=== PATIENT | male | born 1985 | race Caucasian/White ===

== ENCOUNTER → 2018-06-18 13:34 | Outpatient (CLI) | payer OTHER, SELFPAY ==
--- NOTE | 2018-06-18 | DI.RAD.S_ITS ---
PROCEDURE: FL ARTHROGRAM WRIST LT INDICATIONS: OTHER INSTABILITIES OF LEFT WRIST TECHNIQUE: After informed consent had been obtained, the wrist was examined fluoroscopically, and a site chosen for injection of the radiocarpal compartment from a dorsal approach. Skin was prepped and draped in a sterile fashion and 1% lidocaine infiltrated from the skin down to the articular surface. A hypodermic needle was then introduced into the articular space and a modest amount of contrast medium was instilled confirming intra-articular needle tip placement. This was followed by approximately 4 mL of a dilute gadolinium solution. Needle was removed and dressing was applied. The patient experienced no complications throughout the procedure and left the fluoroscopic suite in no apparent distress. FINDINGS: A single fluoroscopic spot image demonstrates intra-articular location to injected iodinated contrast. IMPRESSION: Successful fluoroscopic-guided administration of dilute Gadolinium solution for wrist MR arthrogram. Dictated by: Lui Luna M.D. on 06/18/2018 at 15:14 Approved by: Lui Luna M.D. on 06/18/2018 at 15:16
--- NOTE | 2018-06-18 | DI.MRI.S_ITS ---
PROCEDURE: MR WRIST LT W CON INDICATIONS: OTHER INSTABILITIES OF LEFT WRIST TECHNIQUE: After the administration of 3-4 mL of dilute intra-articular Gadolinium contrast into the radiocarpal compartment, coronal T1 spin echo with fat saturation and T2 fast spin echo with fat saturation, axial T1 spin echo and T2 fast spin echo with fat saturation, sagittal T1 spin echo with and without fat saturation through the wrist. COMPARISON: None. FINDINGS: Image quality: Excellent. Bones and cartilage: No bone marrow contusions or fractures. There is slight dorsal angulation of the lunate. No evidence for avascular necrosis. Overlying cartilage surfaces appear normal. Carpal ligaments: The scapholunate ligament demonstrates mild partial tearing of the membranous component. The volar and dorsal components appear grossly intact. There is gadolinium extravasation into the mid-carpal compartment. The lunotriquetral ligament appears intact. The radioscaphocapitate and radiolunotriquetral ligaments appear grossly intact. The dorsal intercarpal ligament appears intact. The radiotriquetral ligaments appear attenuated in signal intensity suggestive of a prior sprain. On sagittal images, the pisohamate ligament appears intact. Triangular fibrocartilage complex: The triangular fibrocartilage disc, with its styloid and foveal lamina, appears intact. No gadolinium extravasation into the distal radioulnar joint. The adjacent meniscal homolog appears normal. The ulnar collateral ligament appears intact. The extensor carpi ulnaris tendon is normal in location and morphology. Tendons and soft tissues: The carpal tunnel structures appear normal, including the median nerve. The ulnar nerve appears normal within Guyon's canal. All six extensor tendon compartments demonstrate normal morphology, without pathologic tendon sheath fluid. There is a small lobulated ganglion cyst extending volar to the radiocarpal joint at the level of the proximal scaphoid. This measures up to approximately 0.9 cm. A small amount of indistinct soft tissue is demonstrated IMPRESSION: 1. Partial tearing of the membranous component of scapholunate ligament. 2. Attenuated signal in the dorsal radiotriquetral ligaments dorsally suggestive of a prior sprain. 3. Small volar ganglion cyst along the radiocarpal joint. Dictated by: Herman Kumar M.D. on 06/18/2018 at 14:56 Approved by: Herman Kumar M.D. on 06/18/2018 at 15:17
== END ==
PROVIDERS: Visit Provider Orthopaedic Surgery
DX: M25.332 Other instability, left wrist (principal); S63.592A Other specified sprain of left wrist, initial encounter; M67.432 Ganglion, left wrist
CPT/HCPCS: 25246; 73222; 77002

== ENCOUNTER 2024-06-19 12:44 | Day surgery (SDC) | payer OTHER, SELFPAY ==
--- NOTE | 2024-06-19 | PATH_ITS ---
[facility] Accession Number: [id number] No. of containers..02 Tissue . 01 Material submitted: . PART A: small bowel - SMALL BOWEL PART B: stomach - STOMACH . 01 Diagnosis: Part A: SMALL BOWEL: Small bowel mucosa with no diagnostic alterations. No active inflammation and no evidence of celiac disease. . Part B: STOMACH: Gastric oxyntic mucosa with no diagnostic alterations. No Helicobacter organisms identified on H/E stain. No intestinal metaplasia, dysplasia, or malignancy identified. [facility] 06/21/2024 1504 Local . 01 Electronically signed: . Herman Collins MD, Pathologist NPI- [id number] . 01 Gross description: . A. Received in formalin with two patient identifiers and 1. Small bowel biopsy, is a single larry soft tissue fragment 0.4 cm in greatest dimension. Submitted in cassette A1. . B. Received in formalin with two patient identifiers and 2. Stomach biopsy, are three larry soft tissue fragments 0.4 to 0.5 cm in greatest dimension. Submitted in cassette B1. ([id number]) /[facility] 06/21/2024 1504 Local . 01 Pathologist provided ICD-10: R09.A2, R14.2 . 01 CPT . 698623, [id number] Specimen Comment: A courtesy copy of this report has been sent to [phone] Performed at: [address] [place] [address] [id number] MD Herman Collins MD Phone: [phone]
[2024-06-19 13:17] VITALS: BP 120/79; PULSE 78; RESP 16; TEMP 36.3; O2SAT 99
[2024-06-19] MEDS: LACTATED RINGERS 1,000 ML 100 ML IV (13:21)
--- NOTE | 2024-06-19 13:22 | PM.HP.1 ---
History of Present Illness History of Present Illness Date Patient Seen: 06/19/24 Chief complaint: EGD Narrative: Abdominal discomfort bloating and occasional loose stools. Rule out GERD versus gastritis versus celiac disease PFSH Social History Smoking Status: Never smoker alcohol intake: current Meds Home Medications and Allergies Home Medications Medication Instructions Recorded Confirmed Type acetaminophen 325 mg tablet 650 mg PO PRN PRN Pain, Mild 06/19/24 06/19/24 History ibuprofen 600 mg tablet 600 mg PO PRN PRN Pain, Mild 06/19/24 06/19/24 History omeprazole 20 mg capsule,delayed 20 mg PO DAILY 06/19/24 06/19/24 History release Allergies Allergy/AdvReac Type Severity Reaction Status Date / Time No Known Drug Allergies Allergy Verified 06/19/24 13:00 Exam Vital Signs (past 8 hours): - 06/19/24 13:17 Temperature 97.3 F L Pulse Rate 78 Respiratory Rate 16 Blood Pressure 120/79 Pulse Oximetry 99 Oxygen Delivery Method Room Air Oxygen Delivery Method Room Air Narrative Exam Narrative: Oropharynx free of lesions Chest clear to auscultation percussion Cardiac exam reveals no S3 or murmur Assessment & Plan Assessment & Plan narrative: Persistent GI symptoms without clear etiology need for upper endoscopy to rule out findings as above. Risks, benefits, alternatives have been explained. Time-Based Coding :: [TOTAL MINUTES] spent with patient and on the chart (including review of chart, obtaining history, exam, reviewing outside data, placing orders, documenting exam and treatment plan, and counseling patient) on [DATE].
--- NOTE | 2024-06-19 13:24 | PM.OP.EGD ---
Operative Date/Time/Diagnoses Date of procedure: 06/19/24 Pre-op diagnosis: See indication and findings Procedure & Clinicians Study performed: EGD with biopsy Indications: Abdominal discomfort bloating loose stools Surgeon: Lia Mitchell Procedure Notes Procedure in detail: After informed consent was obtained the patient was placed in left lateral decubitus position. The video upper scope was placed into the oropharynx and with the patient's help swallowed into the esophagus. The esophagus stomach and duodenal were carefully examined. On withdrawal, retroflexed view the GE junction was performed. The scope was removed. The patient tolerated procedure well. Blood loss none Complications none Sedation mac Findings 1. Normal esophagus 2. Patchy gastric erythema biopsies taken to rule out Helicobacter 3. Normal duodenal bulb and sweep biopsies taken to rule out celiac Will be in touch with the patient concerning biopsies. In the meantime he can just continue taking his current medication/PPIs
[2024-06-19 13:46] VITALS: BP 107/65; PULSE 73; RESP 15; TEMP 36.2; O2SAT 98
[2024-06-19 13:49] VITALS: BP 115/80; PULSE 93; RESP 18; TEMP 36.2; O2SAT 96
[2024-06-19 13:53] VITALS: BP 113/82; PULSE 87; RESP 15; TEMP 36.2; O2SAT 96
--- NOTE | 2024-06-19 13:59 | PM.PREOP ---
Pre-operative Note COVID-19 COVID-19 status: Not tested Interval Note History & Physical reviewed/Exam performed by Physician: Yes Changes to H&P: No ASA Class (for procedural sedation): II
--- NOTE | 2024-06-19 14:00 | PM.OP.EC ---
Operative Date/Time/Diagnoses Date of procedure: 06/19/24 Pre-op diagnosis: See indication and findings Procedure & Clinicians Study performed: EGD and colonoscopy Indications: GE reflux with globus sensation dyspepsia nausea vomiting and loose stools. Surgeon: Lia Mitchell Procedure Notes Procedure in detail: After informed consent was obtained the patient was placed in left lateral decubitus position. The video upper scope was placed into the oropharynx and with the patient's help swallowed into the esophagus. The esophagus stomach and duodenal were carefully examined. On withdrawal, retroflexed view the GE junction was performed. The scope was removed. The patient tolerated procedure well. Blood loss none Complications none Sedation mac Findings EGD 1.
== END 2024-06-19 14:10 | disposition home or self-care (01) ==
PROVIDERS: Referring Provider Internal Medicine Gastroenterology; Visit Provider Internal Medicine Gastroenterology
PROC: 0DJ08ZZ Inspection of Upper Intestinal Tract, Via Natural or Artificial Opening Endoscopic (ICD-10-PCS; CPT 43239; principal; 2024-06-19 14:00)
DX: R10.9 Unspecified abdominal pain (principal); R19.7 Diarrhea, unspecified; R14.0 Abdominal distension (gaseous)
CPT/HCPCS: 43239; J2704